=== PATIENT | male | born 1950 | race Hispanic/Latino ===

== ENCOUNTER 2020-10-05 09:02 | Emergency (ER) | payer OTHER ==
--- OUTSIDE RECORDS SUMMARY | 2020-10-05 09:05 | XMS REPORT | Continuity of Care Document ---
:1950 Author Organization [facility] t Address [address] [place] [address] [address] [place] [address] Care Team Providers Name Role Phone Unavailable Unavailable Unavailable Problems This patient has no known problems. Allergies, Adverse Reactions, Alerts This patient has no known allergies or adverse reactions. Medications This patient has no known medications. Procedures This patient has no known procedures. Results This patient has no known results.
[2020-10-05 09:45] LABS: Absolute Lymphocytes (CBC) 0.9 K/uL (0.7-4.9); Basophils % 0.4 % (0-1.3); Hematocrit 36.7 % (39.6-49.0); Lymphocytes % 10.5 % (15.3-44.8); MPV 10.5 fL (7.6-11.3); RBC Red Blood Cell Count 4.09 M/uL (4.33-5.43)
[2020-10-05 10:06] LABS: ALT/SGPT 208 U/L (12-78); AST/SGOT 131 U/L (15-37); Albumin 3.4 g/dL (3.4-5.0); Alkaline Phosphatase 373 U/L (45-117); BUN Blood Urea Nitrogen 9 mg/dL (7-18); Bicarbonate 29 mmol/L (21-32); Bilirubin Direct 4.6 mg/dL (0-0.2); Glucose Level 123 mg/dL (74-106); Lipase 11944 U/L (73-393); Potassium 3.6 mmol/L (3.5-5.1); Protein, Total 8.5 g/dL (6.4-8.2); Sodium Level 138 mmol/L (136-145)
[2020-10-05 10:08] LABS: Bilirubin Total 5.6 mg/dL (0.2-1.0)
--- NOTE | 2020-10-05 10:15 | RAD REPORT ---
EXAM DESCRIPTION: US - Abdomen Exam Limited - 10/05/2020 10:02 am CLINICAL HISTORY: Abdominal pain. COMPARISON: July 2020 FINDINGS: Gallbladder is filled with sludge and stones. The gallbladder wall is poorly delineated. The common bile duct measures 1 centimeter IMPRESSION: Gallbladder is filled with sludge and stones. Dilatation of the common bile duct may be secondary to a nonvisualized stone
--- NOTE | 2020-10-05 10:45 | EDPHYS ---
Physician Documentation [facility] Name: Christopher Castellano Age: 69 yrs Sex: Male : 1950 Arrival Date: 10/05/2020 Time: 09:06 Bed 17 Private MD: Mj Moody E ED Physician Rc Agosto HPI: 10/05 10:34 This 69 yrs old Male presents to ER via Ambulatory with complaints of kb Abdominal Pain. 10:34 The patient presents with abdominal pain in the upper abdomen. Onset: The kb symptoms/episode began/occurred 5 month(s) ago, and became worse this week. The symptoms do not radiate. Associated signs and symptoms: none. The symptoms are described as constant. Modifying factors: The symptoms are alleviated by nothing, the symptoms are aggravated by food. Severity of pain: At its worst the pain was moderate in the emergency department the pain is unchanged. The patient has not experienced similar symptoms in the past. The patient has not recently seen a physician. Pt reports upper abd pain that has been going on intermittently since May. States he has had a few episodes per month. Had an US in July but never got the results. The pain started again this week and has been getting worse. Pain worse a few hours after eating. Historical: - Allergies: 09:12 No Known Allergies; ss - Home Meds: 09:12 None [Active]; ss - PMHx: 09:12 None; ss - PSHx: 09:12 None; ss - Immunization history:: Adult Immunizations unknown. - Social history:: Smoking status: Patient denies any tobacco usage or history of. ROS: 10:33 Constitutional: Negative for fever, chills, and weight loss, Cardiovascular: Negative kb for chest pain, palpitations, and edema, Respiratory: Negative for shortness of breath, cough, wheezing, and pleuritic chest pain, MS/Extremity: Negative for injury and deformity, Skin: Negative for injury, rash, and discoloration, Neuro: Negative for headache, weakness, numbness, tingling, and seizure. 10:33 Abdomen/GI: Positive for abdominal pain, Negative for nausea, vomiting, and diarrhea. Exam: 10:33 Constitutional: This is a well developed, well nourished patient who is awake, alert, kb and in no acute distress. Head/Face: Normocephalic, atraumatic. Cardiovascular: Regular rate and rhythm with a normal S1 and S2. No gallops, murmurs, or rubs. No pulse deficits. Skin: Warm, dry with normal turgor. Normal color. MS/ Extremity: Pulses equal, no cyanosis. Neurovascular intact. Full, normal range of motion. Neuro: Awake and alert, GCS 15, oriented to person, place, time, and situation. Moves all extremities. Normal gait. 10:33 Respiratory: the patient does not display signs of respiratory distress, Respirations: normal, Breath sounds: are clear throughout. 10:33 Abdomen/GI: Inspection: abdomen appears normal, Bowel sounds: normal, in all quadrants, Palpation: soft, in all quadrants, moderate abdominal tenderness, in the right upper quadrant and left upper quadrant. 10:34 Eyes: Sclera: icterus, is present. kb Vital Signs: 09:12 BP 147 / 81; Pulse 85; Resp 15; Temp 99.1(TE); Pulse Ox 99% ; Weight 72.57 kg; Height 5 ss ft. 5 in. (165.10 cm); Pain 6/10; 09:53 BP 145 / 67; Pulse 67; Resp 17; Pulse Ox 100% ; bp 10:48 BP 174 / 77; Pulse 73; Resp 16; Pulse Ox 99% ; bp 12:47 BP 142 / 67; Pulse 65; Resp 17; Pulse Ox 99% ; bp 09:12 Body Mass Index 26.63 (72.57 kg, 165.10 cm) ss MDM: 09:17 Patient medically screened. kb 10:22 Data reviewed: vital signs, nurses notes. Data interpreted: Pulse oximetry: on room air kb is 100 %. Interpretation: normal. Counseling: I had a detailed discussion with the patient and/or guardian regarding: the historical points, exam findings, and any diagnostic results supporting the discharge/admit diagnosis, lab results, radiology results, the need to transfer to another facility, [facility] does not immediately have the required specialist. 11:44 ED course: Pt accepted to [facility]. . kb 10/05 09:17 Order name: Basic Metabolic Panel; Complete Time: 10:17 kb 10/05 09:17 Order name: CBC with Diff; Complete Time: 09:50 kb 10/05 09:17 Order name: Hepatic Function; Complete Time: 10:17 kb 10/05 09:17 Order name: Lipase; Complete Time: 10:17 kb 10/05 12:29 Order name: SARS-COV-2 RT PCR; Complete Time: 12:38 EDMS 10/05 09:17 Order name: IV Saline Lock; Complete Time: 09:51 kb 10/05 09:17 Order name: Labs collected and sent; Complete Time: 09:51 kb 10/05 09:22 Order name: US Abdomen Limited; Complete Time: 10:17 kb Administered Medications: 10:45 Drug: NS 0.9% 1000 ml Route: IV; Rate: 1 bolus; Site: right antecubital; bp 11:50 Follow up: IV Status: Completed infusion; IV Intake: 1000ml bp 10:45 Drug: morphine 4 mg Route: IVP; Site: right antecubital; bp 11:50 Follow up: Response: Pain is decreased bp 10:45 Drug: Zofran (Ondansetron) 4 mg Route: IVP; Site: right antecubital; bp 11:50 Follow up: Response: No adverse reaction bp 12:10 Drug: Zosyn 3.375 grams Route: IVPB; Infused Over: 60 mins; Site: right antecubital; bp 13:34 Follow up: IV Status: Completed infusion; IV Intake: 100ml bp Disposition: 14:10 Co-signature as Attending Physician, Rc Agosto MD I agree with the assessment and kdr plan of care. Disposition: 10/05/20 10:44 Transfer ordered to Other Acute Care Facility. Diagnosis are Cholelithiasis, Acute pancreatitis. - Reason for transfer: Higher level of care. - Accepting physician is [place]. - Condition is Stable. - Problem is new. - Symptoms are unchanged. Signatures: Dispatcher [employer] EDCT Caitlyn Muhammad, OIL AND GAS SUPERINTENDENT-C OIL AND GAS SUPERINTENDENT-Rc Valles MD MD [facility] Jenni Sykes RN RN Willi Justice RN RN bp Corrections: (The following items were deleted from the chart) 11:42 10:31 CORONAVIRUS+ ordered. [facility] 11:44 10:44 10/05/2020 10:44 Transfer ordered to [facility]. kb Diagnosis is Cholelithiasis; Acute pancreatitis. Reason for transfer: Higher level of care. Accepting physician is [facility]. Condition is Stable. Problem is new. Symptoms are unchanged. kb 13:14 11:44 10/05/2020 10:44 Transfer ordered to Other Acute Care Facility. Diagnosis is kb Cholelithiasis; Acute pancreatitis. Reason for transfer: Higher level of care. Accepting physician is [facility]. Condition is Stable. Problem is new. Symptoms are unchanged. kb 13:34 13:14 10/05/2020 10:44 Transfer ordered to Other Acute Care Facility. Diagnosis is bp Cholelithiasis; Acute pancreatitis. Reason for transfer: Higher level of care. Accepting physician is [facility]. Condition is Stable. Problem is new. Symptoms are unchanged. kb
--- NOTE | 2020-10-05 10:45 | ER ---
Nurse's Notes [facility] Name: Christopher Castellano Age: 69 yrs Sex: Male : 1950 Arrival Date: 10/05/2020 Time: 09:06 Bed 17 Private MD: Mj Moody E Diagnosis: Cholelithiasis;Acute pancreatitis Presentation: 10/05 09:10 Chief complaint: Patient states: Abd pain and bloating after eating that began 1 week ss ago. Denies N/V/D. Coronavirus screen: Client denies travel out of the [place] in the last 14 days. Ebola Screen: Patient denies exposure to infectious person. Patient denies travel to an Ebola-affected area in the 21 days before illness onset. Initial Sepsis Screen: Does the patient meet any 2 criteria? No. Patient's initial sepsis screen is negative. Does the patient have a suspected source of infection? No. Patient's initial sepsis screen is negative. Risk Assessment: Do you want to hurt yourself or someone else? Patient reports no desire to harm self or others. Onset of symptoms was September 28, 2020. 09:10 Method Of Arrival: Ambulatory ss 09:10 Acuity: CLARA 3 ss Triage Assessment: 09:15 General: Appears in no apparent distress. uncomfortable, Behavior is cooperative, bp appropriate for age, anxious. Pain: Complains of pain in abdomen. EENT: No deficits noted. Neuro: No deficits noted. Cardiovascular: No deficits noted. Respiratory: No deficits noted. GI: Abdomen is non-distended, Reports upper abdominal pain. : No signs and/or symptoms were reported regarding the genitourinary system. Derm: No deficits noted. Musculoskeletal: No deficits noted. Historical: - Allergies: 09:12 No Known Allergies; ss - Home Meds: 09:12 None [Active]; ss - PMHx: 09:12 None; ss - PSHx: 09:12 None; ss - Immunization history:: Adult Immunizations unknown. - Social history:: Smoking status: Patient denies any tobacco usage or history of. Screenin:15 Abuse screen: Denies threats or abuse. Denies injuries from another. Nutritional bp screening: No deficits noted. Tuberculosis screening: No symptoms or risk factors identified. Fall Risk None identified. Assessment: 09:15 General: SEE TRIAGE NOTE. bp 09:52 Reassessment: Patient appears in no apparent distress at this time. No changes from bp previously documented assessment. Patient and/or family updated on plan of care and expected duration. Pain level reassessed. Patient is alert, oriented x 3, equal unlabored respirations, skin warm/dry/pink. PT TO U/S. 10:48 Reassessment: No changes from previously documented assessment. Patient and/or family bp updated on plan of care and expected duration. Pain level reassessed. Patient is alert, oriented x 3, equal unlabored respirations, skin warm/dry/pink. TRANSFER INITIATED FOR GALLSTONE PANCREATITIS. 12:47 Reassessment: REPORT TO IRENE PADILLA AT [facility]. TRANSPORT PENDING. bp 13:33 Reassessment: PT ERIC WITH EMS. bp Vital Signs: 09:12 BP 147 / 81; Pulse 85; Resp 15; Temp 99.1(TE); Pulse Ox 99% ; Weight 72.57 kg; Height 5 ss ft. 5 in. (165.10 cm); Pain 6/10; 09:53 BP 145 / 67; Pulse 67; Resp 17; Pulse Ox 100% ; bp 10:48 BP 174 / 77; Pulse 73; Resp 16; Pulse Ox 99% ; bp 12:47 BP 142 / 67; Pulse 65; Resp 17; Pulse Ox 99% ; bp 09:12 Body Mass Index 26.63 (72.57 kg, 165.10 cm) ss ED Course: 09:06 Patient arrived in ED. am2 09:07 Mj Moody MD is Private Physician. am2 09:11 Triage completed. ss 09:12 Arm band placed on right wrist. ss 09:15 Patient has correct armband on for positive identification. Bed in low position. Call bp light in reach. Side rails up X2. 09:17 Caitlyn Muhammad FNP-C is PHCP. kb 09:17 Rc Agosto MD is Attending Physician. kb 09:18 Willi Hodges, RANDY is Primary Nurse. bp 09:30 Inserted saline lock: 20 gauge in right antecubital area, using aseptic technique. bp Blood collected. 10:02 US Abdomen Limited In Process Unspecified. EDMS 10:45 initiated transfer to [facility], pt was declined due to no beds available at this time, per Kim Medina. 10:55 initiated transfer to [facility]. bd 11:01 pt denied due to all [facility] hospitals being at capacity. per Nikole Ward. bd 12:09 initiated transfer to [facility], pt accepted in transfer to [facility] by dr Sprague, bd admin approval give by Luisa Webb. 13:33 No provider procedures requiring assistance completed. Patient transferred, IV remains bp in place. Administered Medications: 10:45 Drug: NS 0.9% 1000 ml Route: IV; Rate: 1 bolus; Site: right antecubital; bp 11:50 Follow up: IV Status: Completed infusion; IV Intake: 1000ml bp 10:45 Drug: morphine 4 mg Route: IVP; Site: right antecubital; bp 11:50 Follow up: Response: Pain is decreased bp 10:45 Drug: Zofran (Ondansetron) 4 mg Route: IVP; Site: right antecubital; bp 11:50 Follow up: Response: No adverse reaction bp 12:10 Drug: Zosyn 3.375 grams Route: IVPB; Infused Over: 60 mins; Site: right antecubital; bp 13:34 Follow up: IV Status: Completed infusion; IV Intake: 100ml bp Intake: 11:50 IV: 1000ml; Total: 1000ml. bp 13:34 IV: 100ml; Total: 1100ml. bp Outcome: 10:44 ER care complete, transfer ordered by . kb 13:33 Transferred by ground EMS Note: [facility] bp 13:33 Condition: stable 13:33 Instructed on the need for transfer. 13:34 Patient left the ED. bp Signatures: Dispatcher [employer] EDMS Caitlyn Muhammad, LIU MINE TECHNICIAN-Jessica Grayson Shelby, RANDY RN ss Elena Castellano Brian RN RN bp Corrections: (The following items were deleted from the chart) 09:15 09:10 Chief complaint: Patient states: Abd pain after eating that began 1 week ago. ss ss
[2020-10-05] MEDS ORDERED: ONDANSETRON 4 MG/2 ML VIAL ONE (10:54)
[2020-10-05] MEDS ORDERED: NA CHLORIDE 0.9% 1,000 ML ONE (10:54)
[2020-10-05] MEDS ORDERED: MORPHINE 4 MG/ML SYR ONE (10:54)
[2020-10-05] MEDS ORDERED: PIPER/TAZO/NS 3.375gm 3.375 GM/100 ML BAG ONE (12:47)
[2020-10-05 14:27] VITALS: TEMP 99.1
[2020-10-05 14:29] VITALS: O2SAT 99
[2020-10-05 14:30] VITALS: BP 142/67
== END 2020-10-05 13:34 ==
LOC: ER 09:02
DX: K85.90 Acute pancreatitis without necrosis or infection, unspecified (principal); K80.20 Calculus of gallbladder without cholecystitis without obstruction; Z20.822 Contact with and (suspected) exposure to COVID-19
CPT/HCPCS: 96365; 96361; 85025; 80048; 36415; 80076; 83690; 76705; 96375; 99285; U0003; J2543; J7030; J2405